=== PATIENT | female | born 1975 | race African-American/Black ===

== ENCOUNTER 2016-11-09 07:48 | Emergency (ER) | payer OTHER ==
[~2016-11-09] VITALS: Ht 170.2 cm; Wt 81.2 kg
[~2016-11-09 07:48] MED LIST: BENADRYL; BLEPHAMIDE EYE D5 ML OP; CIPRO PO; CLARITIN10 MG; CLARITIN10 MG PO; CYTOTEC100 MCG PO; CYTOTEC100 MCG PR; LORTAB 5/500 TA1 TA1 PO; MACROBID100 MG PO; MEDROL PO; MONISTAT 745 GM VG; PHENERGAN PO; TRIAMCINOLONE A15 G3 EXT; TYLOX 5/500 CAP1 CAP PO; VICODIN PO; ZANTAC PO; ZITHROMAX1 G/PKT PO
[2016-11-09 08:12] LABS: URINE SOURCE CLEAN CATCH
[2016-11-09 08:17] LABS: URINE APPEARANCE CLOUDY; URINE BILIRUBIN NEG (NEG); URINE BLOOD 3+ (NEG); URINE COLOR YELLOW; URINE GLUCOSE NEG (NEG); URINE KETONE NEG (NEG); URINE LEUKOCYTE ESTERASE 1+ (NEG); URINE NITRATE NEG (NEG); URINE PROTEIN NEG (NEG); URINE SPECIFIC GRAVITY 1.022 (1.003-1.035)
[2016-11-09 08:19] LABS: CULTURE INDICATED? YES; URBCS1 AUWI 50-100 /[HPF] (0-2); URINE BACTERIA AUWI 1+ (NEGATIVE); URINE SQUAMOUS EPITHELIAL CELL FEW /[HPF]
[2016-11-12 10:59] LABS: CHLAMYDIA TRACH Not Detected (Not Detected); N GONOR Not Detected (Not Detected)
== END 2016-11-09 10:00 | disposition home or self-care (01) ==
LOC: CED 07:48
PROVIDERS: Nurse Practitioner
DX: N76.0 Acute vaginitis (principal); B96.89 Other specified bacterial agents as the cause of diseases classified elsewhere; N30.01 Acute cystitis with hematuria
CPT/HCPCS: 81003; 84703; 87086; 87491; 87591; 87808; 87905; 99283